=== PATIENT | male | born 1955 | race Caucasian/White ===

== ENCOUNTER → 2018-02-18 | Day surgery (SDC) | payer OTHER ==
[~2018-02-18] MED LIST: ALLOPURINOL300 MG PO; AMLODIPINE BESYL5 MG PO; ASPIR 8181 MG PO; D3; FENTANYL CITRATE/PF 100MCG/2 ML INJ ONE; FOLIC ACID1 MG PO; HYDROCHLOROTHIA25 MG PO; HYOSCYAMINE SULFATE 0.5 MG/ML AMP ONE; LANSOPRAZOLE30 MG PO; MIDAZOLAM HCL 2 MG/2 ML VIAL ONE; NORVASC; PROPOFOL IV EMULSION 10 MG/ML 50 ML VIAL ONE; SIMVASTATIN20 MG PO; VITAMIN E400 UNI1; ZESTRIL20 MG PO; [UNRECOGNIZED DRUG - OTHER]
[2018-02-18 11:37] LABS: % IRON SATURATION 23 % (15-50); IRON 77 ug/dL (65-175); TOTAL IRON BINDING CAPACITY 339 ug/dL (261-478); TRANSFERRIN 242 mg/dL (174-364)
--- NOTE | 2018-02-18 11:42 | Operative Report ---
DATE OF PROCEDURE: February 18, 2018 REFERRING PHYSICIAN: Preet Rodriges M.D. PROCEDURE PERFORMED: Colonoscopy and polypectomy. INDICATIONS FOR COLONOSCOPY: Colorectal cancer screening. Personal history of colon polyps. MEDICATION: Patient was done under MAC. Please see anesthesiologist's note. PROCEDURE: With the patient in the left lateral decubitus position, the flexible fiberoptic Olympus colonoscope was inserted into the rectum with ease and advanced all the way to the cecum. The scope was then withdrawn slowly. Mucosa overlying the cecum and the ascending colon appeared to be within normal limits. One polyp was snared from the transverse colon, and 3 polyps were hot biopsied from the descending. Two polyps were snared and two polyps were hot biopsied from the sigmoid. Two polyps were hot biopsied from the rectum. The scope was then retroflexed into the distal rectum. Small internal hemorrhoids were noted, none of which was actively bleeding. The scope was then straightened out. It was subsequently withdrawn. Patient tolerated the procedure well. IMPRESSION 1. Transverse colon polyp, snared. 2. Descending colon polyps times 3, hot biopsied. 3. Sigmoid colon polyps times 4, two snared and two hot biopsied. 4. Rectal polyps times 2, hot biopsied. 5. Small internal hemorrhoids, none actively bleeding. PLAN: Follow up histology. Initiate high-fiber, low-fat diet. Initiate high-fiber supplement. Patient will need a followup colonoscopy in 3 years. A total of 10 polyps were removed. Job#: [id number] cc:PREET RODRIGES M.D.
== END | disposition home or self-care (01) ==
LOC: ENDO 06:32
PROVIDERS: ATTEND Internal Medicine Gastroenterology
DX: Z12.11 Encounter for screening for malignant neoplasm of colon (principal); Z86.010 Personal history of colon polyps; K64.8 Other hemorrhoids; I10 Essential (primary) hypertension; G47.33 Obstructive sleep apnea (adult) (pediatric); E66.01 Morbid (severe) obesity due to excess calories; K63.5 Polyp of colon; K62.1 Rectal polyp
CPT/HCPCS: 36415; 45384; 45385; 82948; 83540; 84466; 85045; 93005; J1980; J2250; 45378